=== PATIENT | female | born 1980 | race Caucasian/White ===

== ENCOUNTER 2018-08-15 18:33 | Emergency (ER) | payer SELFPAY ==
[~2018-08-15] VITALS: Ht 157.5 cm; Wt 50.0 kg
[2018-08-15 18:36] VITALS: TEMP 97.9
[2018-08-15] MEDS ORDERED: XANAX 1MG1 MG PO (19:14)
[2018-08-15 19:46] LABS: COLLECTION METHOD CLEAN CATCH
[2018-08-15 19:57] LABS: BASO # 0.1 (0.0-0.2); BASO % 0.9 % (0.0-2.0); EOS # 0.6 (0.0-0.7); EOS % 6.9 % (0-4.0); GRAN # 4.6 (1.4-6.5); GRAN % 56.4 % (42.2-75.2); HEMATOCRIT 42.4 % (37.0-47.0); HEMOGLOBIN 14.1 g/dl (12.5-16.0); LYMPH # 2.2 (1.2-3.4); LYMPH % 27.4 % (20.0-51.0); MEAN CELL VOLUME 89 fl (80.0-100.0); MEAN CORPUSCULAR HEMOGLOBIN 30 pg (27.0-31.0); MEAN CORPUSCULAR HGB CONC 33 g/dl (33.0-37.0); MEAN PLATELET VOLUME 8.8 fl (7.4-10.4); MONO # 0.7 (0.1-0.6); MONO % 8.2 % (1.7-9.3); PLATELET COUNT 402 K/mm3 (130-400); RED BLOOD COUNT 4.76 M/mm3 (4.10-5.30); REDCELL DISTRIBUTION WIDTH-CV 12.1 % (11.5-14.5)
[2018-08-15 20:00] LABS: MUCOUS Present /lpf; PH 5 (5-8); SQUAMOUS EPITHELIAL 20-50 /hpf; URINE APPEARANCE Cloudy; URINE BACTERIA Rare /hpf; URINE BILIRUBIN Negative (NEGATIVE); URINE BLOOD Negative (NEGATIVE); URINE COLOR Yellow; URINE GLUCOSE Negative (NEGATIVE); URINE KETONE Negative (NEGATIVE); URINE LEUKOCYTE ESTERASE 3+ (NEGATIVE); URINE NITRATE Negative (NEGATIVE); URINE PROTEIN(semi-quant) 1+ (NEGATIVE); URINE UROBILINOGEN Negative (NEGATIVE)
[2018-08-15 20:09] LABS: ALBUMIN 4.5 gm/dL (3.5-5.0); BILIRUBIN,TOTAL 0.2 mg/dL (0.0-1.0); CALCIUM 9.4 mg/dL (8.4-10.2); CREATININE, serum 0.68 mg/dL (0.52-1.25); POTASSIUM 4.2 mmol/L (3.4-5.0); TOTAL PROTEIN 8.6 gm/dL (6.4-8.2)
[2018-08-15] MEDS ORDERED: OMNICEF 300MG300 MG PO (20:31)
[2018-08-15] MEDS ORDERED: TEGRETOL 1100 MG/TAB PO (20:31)
[2018-08-15 20:48] VITALS: BP 149/100; PULSE 89
== END 2018-08-15 20:48 | disposition home or self-care (01) ==
LOC: COL.ER 18:33
PROVIDERS: Physician Assistant
DX: G50.0 Trigeminal neuralgia (principal); N30.00 Acute cystitis without hematuria
CPT/HCPCS: J0696

== ENCOUNTER 2018-08-24 12:22 | Emergency (ER) | payer SELFPAY ==
[~2018-08-24] VITALS: Ht 157.5 cm; Wt 50.0 kg
[~2018-08-24 12:22] MED LIST: OMNICEF 300MG300 MG PO; TEGRETOL 1100 MG/TAB PO; XANAX 1MG1 MG PO
[2018-08-24 12:33] VITALS: BP 156/102; PULSE 95; TEMP 98.7
[2018-08-24] MEDS ORDERED: TEGRETOL 2200 MG/TA1 PO (13:10)
== END 2018-08-24 13:25 | disposition home or self-care (01) ==
LOC: COL.ER 12:22
DX: G50.0 Trigeminal neuralgia (principal); Z76.0 Encounter for issue of repeat prescription

== ENCOUNTER 2019-03-08 11:18 | Emergency (ER) | payer SELFPAY ==
[~2019-03-08] VITALS: Ht 160 cm; Wt 69.1 kg
[~2019-03-08 11:18] MED LIST changes: +TEGRETOL 2200 MG/TA1 PO
[2019-03-08 11:23] VITALS: BP 142/87
[2019-03-08 11:57] LABS: COLLECTION METHOD CLEAN CATCH
[2019-03-08 12:10] LABS: MUCOUS Present /lpf; PH 7 (5-8); SQUAMOUS EPITHELIAL >50 /hpf; URINE APPEARANCE Turbid; URINE BACTERIA Many /hpf; URINE BILIRUBIN Negative (NEGATIVE); URINE BLOOD 3+ (NEGATIVE); URINE COLOR Amber; URINE GLUCOSE Negative (NEGATIVE); URINE KETONE Negative (NEGATIVE); URINE LEUKOCYTE ESTERASE 1+ (NEGATIVE); URINE NITRATE Positive (NEGATIVE); URINE PROTEIN(semi-quant) 2+ (NEGATIVE); URINE RBC >50 /hpf; URINE UROBILINOGEN Negative (NEGATIVE)
[2019-03-08] MEDS ORDERED: MACROBID 1100 MG/CAP PO (13:12)
[2019-03-08 13:44] VITALS: PULSE 91
== END 2019-03-08 13:18 | disposition home or self-care (01) ==
LOC: COL.ER 11:18
PROVIDERS: Emergency Medicine
DX: K59.00 Constipation, unspecified (principal); G50.0 Trigeminal neuralgia

== ENCOUNTER 2019-07-06 00:37 | Observation (INO) | payer SELFPAY ==
[~2019-07-06] VITALS: Ht 160 cm; Wt 71.5 kg
[~2019-07-06 00:37] MED LIST changes: +MACROBID 1100 MG/CAP PO
[2019-07-06 01:17] LABS: BASO # 0.1 (0.0-0.2); BASO % 0.4 % (0.0-2.0); EOS # 0.4 (0.0-0.7); EOS % 2.4 % (0-4.0); GRAN # 12.7 (1.4-6.5); GRAN % 81.6 % (42.2-75.2); HEMOGLOBIN 11.8 g/dl (12.5-16.0); LYMPH # 1.4 (1.2-3.4); LYMPH % 9.1 % (20.0-51.0); MEAN CELL VOLUME 88 fl (80.0-100.0); MEAN CORPUSCULAR HEMOGLOBIN 30 pg (27.0-31.0); MEAN CORPUSCULAR HGB CONC 34 g/dl (33.0-37.0); MEAN PLATELET VOLUME 8.5 fl (7.4-10.4); MONO # 0.9 (0.1-0.6); MONO % 5.9 % (1.7-9.3); PLATELET COUNT 396 K/mm3 (130-400); RED BLOOD COUNT 3.95 M/mm3 (4.10-5.30); REDCELL DISTRIBUTION WIDTH-CV 12.4 % (11.5-14.5)
[2019-07-06 01:21] LABS: COLLECTION METHOD CATHETER
[2019-07-06 01:26] LABS: HEMATOCRIT 34.9 % (37.0-47.0)
[2019-07-06 01:30] LABS: PH 7 (5-8); SQUAMOUS EPITHELIAL 0-2 /hpf; URINE APPEARANCE Clear; URINE BACTERIA None Seen /hpf; URINE BILIRUBIN Negative (NEGATIVE); URINE BLOOD Negative (NEGATIVE); URINE COLOR Straw; URINE GLUCOSE Negative (NEGATIVE); URINE KETONE Negative (NEGATIVE); URINE LEUKOCYTE ESTERASE Negative (NEGATIVE); URINE NITRATE Negative (NEGATIVE); URINE PROTEIN(semi-quant) Negative (NEGATIVE); URINE RBC 0-2 /hpf; URINE UROBILINOGEN Negative (NEGATIVE)
[2019-07-06 01:30] LABS: ALBUMIN 3.9 gm/dL (3.5-5.0); BILIRUBIN,TOTAL 0.3 mg/dL (0.0-1.0); CALCIUM 8.6 mg/dL (8.4-10.2); CREATININE, serum 0.55 (0.52-1.25); POTASSIUM 3.6 mmol/L (3.4-5.0); TOTAL PROTEIN 7.5 gm/dL (6.4-8.2)
[2019-07-06 02:54] LABS: TRICYCLIC ANTIDEPRESS URINE POSITIVE
[2019-07-06] MEDS ORDERED: PERCOCET 325 MG1 TA2 PO (04:25)
--- NOTE | 2019-07-06 05:34 | NUR ---
Pt. arrived to the floor via wheelchair. Pt. independent with ambulation. Pt. is A&OX3, assessment complete. INT to lt. wrist patent. Pt. denies pain or other needs, call light within reach.
[2019-07-06 05:39] VITALS: BP 140/97; PULSE 87; TEMP 97.9
--- NOTE | 2019-07-06 09:00 | NUR ---
PATIENT IN BED ALERT AND ORIENTED X4. NO COMPLAINTS OF FLANK PAIN OR ABDOMINAL PAIN. NO COMPLAINTS OF URINARY RETENTION OR PAIN. SEE SHIFT ASSESSMENT. NO FURTHER NEEDS AT THIS TIME.
[2019-07-06 09:44] VITALS: BP 105/65; PULSE 78; TEMP 98.2
[2019-07-06 10:09] VITALS: BP 100/66; PULSE 79; TEMP 98.3
--- NOTE | 2019-07-06 14:19 | NUR ---
SW met with the patient to discuss a discharge plan. The pt lives in [place] with her two children. The pt does not use DME and reports independence with ADLs. The pt's PCP is Dr. Willis and pt receives medications from [facility] in [place] and [facility] with no difficulties. The pt does not have advanced directives in the EMR but was interested in obtaining a DPOA-HC form. SW provided the form. The pt is self-pay. SW provided a financial assistance form. There are no additional needs at this time.
--- NOTE | 2019-07-06 15:55 | NUR ---
PATIENT BEING DISCHARGED. INT REMOVED, CATHETER INTACT, COVERED WITH COTTON SWAB AND BANDAID. PATIENT DRESSED INDEPENDENTLY. PATIENT TEACHING DONE REGARDING ACTIVITY AND SELF CARE. DISCHARGED TO HOME WITH BOYFRIEND AT 1555.
== END 2019-07-06 15:55 | disposition home or self-care (01) ==
LOC: COL.ER 00:37 → JCC 04:16
PROVIDERS: Nurse Practitioner; ADMIT Urology
DX: O26.831 Pregnancy related renal disease, first trimester (principal); N13.2 Hydronephrosis with renal and ureteral calculous obstruction; Z79.899 Other long term (current) drug therapy
CPT/HCPCS: A4216; C1769; G0378; J0690; J0696; J1100; J1885; J2270; J2405; J2704; J2765; J3010; J7030; Q9967